=== PATIENT | male | born 1970 | race Two or more races ===

== ENCOUNTER 2016-05-02 10:41 | Emergency (ER) | payer MEDICAID ==
[~2016-05-02] VITALS: Ht 157.5 cm; Wt 74.8 kg
[2016-05-02] MEDS ORDERED: Meclizine 25mg tab ORAL ONE (11:15)
[2016-05-02 12:21] VITALS: BP 116/71
[2016-05-02] MEDS ORDERED: MECLIZINE HCL25 MG ORAL (12:38)
[2016-05-02 12:58] VITALS: BP 116/71
--- NOTE | 2016-05-02 14:20 | Emergency Room Report ---
History of Present Illness General Chief Complaint: Dizziness Source: Patient Present Illness HPI Patient is a 42-year-old male who presented after having increased dizziness. Patient reported having increased spinning sensation. Patient's had increased symptoms with head movements. Patient had recently been started on Augmentin for possible ear infection. Patient denied any vomiting but he had several episodes of severe nausea. The patient had no prior recent trauma. He denies any other symptoms currently. He stated he had some ringing in his ear and had recently been seen at an outside facility. Allergies: Coded Allergies: No Known Allergies (Unverified , 05/02/16) Patient History Past Medical History: see triage record Reviewed Nursing Documentation: PMH: Agreed, PSxH: Agreed Nursing Documentation-PMH Past Medical History: No Stated History Review of Systems All Other Systems: negative except mentioned in HPI Physical Exam Vital Signs Date Time Temp Pulse Resp B/P Pulse Ox O2 Delivery O2 Flow Rate FiO2 05/02/16 10:52 98.1 67 14 134/84 100 Room Air General Appearance: well appearing, no apparent distress, alert, GCS 15 Head: normocephalic, atraumatic ENT: hearing grossly normal, normal voice Neck: full range of motion, supple Respiratory: no respiratory distress, speaking full sentences Cardiovascular #1: normal inspection, regular rate, rhythm Gastrointestinal: normal inspection, normal bowel sounds, non tender Musculoskeletal: normal inspection, back normal, no calf tenderness Neurologic: normal inspection, alert, oriented x3, responsive, engagement lead III-XII nml as tested, motor strength/tone normal, normal gait Psychiatric: mood/affect normal Skin: no rash Medical Decision Making Diagnostic Impression: Primary Impression: Vertigo ER Course Patient presented for dizziness. Differential diagnosis included was not limited to CVA, vertebrobasilar insufficiency, myocardial infarction, benign positional vertigo, labyrinthitis, aspirin overdose among others. EKG interpreted by me showed normal sinus rhythm with a rate of [address] or T wave changes. The patient has exam consistent with peripheral vertigo likely do to benign positional vertigo. Patient was given oral meclizine. Patient had improvement in symptoms.The patient is advised to follow up with primary care doctor in 1-2 days. Patient is advised to return if any worsening condition or if any changes in status that are concerning. Last Vital Signs Date Time Temp Pulse Resp B/P Pulse Ox O2 Delivery O2 Flow Rate FiO2 05/02/16 12:58 98.1 63 16 116/71 100 Room Air Status: improved Disposition: HOME, SELF-CARE Condition: Stable Scripts Meclizine Hcl* (MECLIZINE*) 25 Mg Tablet 25 MG ORAL THREE TIMES A DAY for for dizziness, #30 TAB Prov: Garland Gudino 05/02/16 Patient Instructions: Vertigo Garland Gudino May 02, 2016 14:20
--- NOTE | 2016-05-07 23:51 | Cardiology Report ---
APPROVED REPORT EKG Measurement Heart [id number] Normal sinus rhythm Normal ECG
== END 2016-05-02 13:00 | disposition home or self-care (01) ==
LOC: EMR 11:15
DX: R42 Dizziness and giddiness (principal)
CPT/HCPCS: 82962; 93005; 99283